=== PATIENT | female | born 1980 | race Caucasian/White ===

== ENCOUNTER 2016-12-18 18:18 | Emergency (ER) | payer OTHER ==
[~2016-12-18] VITALS: Ht 167.6 cm; Wt 100.0 kg
[2016-12-18 19:30] VITALS: BP 136/80
== END 2016-12-18 19:30 | disposition home or self-care (01) | DRG 951 ==
LOC: ED 18:18
DX: Z20.818 Contact with and (suspected) exposure to other bacterial communicable diseases (principal)